=== PATIENT | female | born 1960 | race Caucasian/White ===

== ENCOUNTER → 2024-03-30 | Emergency (ER) | payer MEDICARE ==
[~2024-03-30] VITALS: Ht 162.6 cm; Wt 83.0 kg
[2024-03-30 07:46] VITALS: BP 138/83; TEMP 97.9; O2SAT 97
== END | disposition home or self-care (01) ==
LOC: ER 07:20
DX: J06.9 Acute upper respiratory infection, unspecified (principal); Z90.49 Acquired absence of other specified parts of digestive tract